=== PATIENT | female | born 1995 | race Caucasian/White ===

== ENCOUNTER 2023-05-11 12:31 | Emergency (ER) | payer SELFPAY ==
[~2023-05-11] VITALS: Ht 162.6 cm; Wt 72.6 kg
[2023-05-11 12:35] VITALS: BP_SYST 118; PULSE 84; RESP 19; TEMP 98.3; O2SAT 100
[2023-05-11 13:24] LABS: BASOPHILS # (AUTO) 0.1 K/uL (0.0-0.2); BASOPHILS % (AUTO) 0.9 % (0.0-2.0); EOSINOPHILS % (AUTO) 0.3 % (0.0-4.0); HEMATOCRIT 39.2 % (36-48); HEMOGLOBIN 13.2 g/dL (12.0-16.0); LYMPHOCYTES # (AUTO) 1.1 K/uL (1.0-5.5); LYMPHOCYTES % (AUTO) 15.7 % (20.5-51.5); MEAN CORPUSCULAR HEMOGLOBIN 30 pg (27-31); MEAN CORPUSCULAR HGB CONC 34 % (32-36); MEAN CORPUSCULAR VOLUME 90 fL (79.0-98.0); MONOCYTES # (AUTO) 0.4 K/uL (0.0-1.0); MONOCYTES % (AUTO) 5.5 % (1.7-9.3); NEUTROPHILS # (AUTO) 5.4 K/uL (1.8-7.7); NEUTROPHILS % (AUTO) 77.6 % (40.0-70.0); PLATELET COUNT (AUTO) 140 K/uL (130-430); RED BLOOD CELL COUNT(AUTO) 4.34 MIL/uL (4.2-6.2); RED CELL DISTRIBUTION WIDTH 13.4 % (9.0-15.0)
[2023-05-11 13:40] LABS: ANION GAP 8 (5-15); CALCIUM 9.6 mg/dL (8.4-11.0); CARBON DIOXIDE 28 mmol/L (23-29); CHLORIDE 105 mmol/L (98-107); CREATININE 0.61 mg/dL (0.55-1.30); GFR AFRICAN AMERICAN 149 mL/min (>90); GLUCOSE 95 mg/dL (74-106); SODIUM SERUM 141 mmol/L (136-145); UREA NITROGEN, BLOOD 10 mg/dL (8-21)
[2023-05-11 13:41] LABS: GFR NON AFRICAN-AMERICAN 123 mL/min (>90)
[2023-05-11] MEDS: PANTOPRAZOLE SODIUM 40 MG TAB PO ONE (15:35)
[2023-05-11] MEDS: FAMOTIDINE 20 MG TABLET PO ONE (15:35)
[2023-05-11] MEDS ORDERED: OMEP40CA20 PO (16:08)
[2023-05-11 16:23] VITALS: BP_SYST 100; PULSE 87; RESP 16; TEMP 99.1; O2SAT 98
== END 2023-05-11 16:23 | disposition home or self-care (01) ==
LOC: SED 12:31
DX: R07.9 Chest pain, unspecified (principal); R10.13 Epigastric pain; Z79.899 Other long term (current) drug therapy
CPT/HCPCS: 36415; 71045; 80048; 83880; 84484; 85025; 93005; 99285